=== PATIENT | male | born 1990 ===

== ENCOUNTER 2020-02-27 13:30 | Inpatient (IN) | payer OTHER ==
[~2020-02-27] VITALS: Ht 208.3 cm; Wt 119.9 kg
[2020-02-27 23:15] VITALS: BP 132/78
[2020-02-27] MEDS ORDERED: VALACYCLOVIR 500MG TABLET PO SCH (23:30)
[2020-02-27] MEDS ORDERED: MELATONIN 5 MG TABLET PO PRN (23:30)
[2020-02-28 01:22] VITALS: BP 126/78
[2020-02-28] MEDS ORDERED: BISACODYL 10 MG SUPP PR PRN (01:30)
[2020-02-28] MEDS: CYCLOBENZAPRINE 10 MG TABLET PO PRN ×2 (03:16→16:23)
[2020-02-28] MEDS ORDERED: CYCL-259 PO (05:30)
[2020-02-28] MEDS ORDERED: DOLU50TA PO (05:32)
[2020-02-28] MEDS ORDERED: EMTR1TAB14 PO (05:35)
[2020-02-28] MEDS ORDERED: FOLI-17 PO (05:36)
[2020-02-28] MEDS ORDERED: TAMS-11 PO (05:38)
[2020-02-28] MEDS ORDERED: SULF1TAB24 PO (05:38)
[2020-02-28 07:10] VITALS: BP 120/76
[2020-02-28 07:26] LABS: BASOPHILS % (AUTO) 1 % (0-1); EOSINOPHILS % (AUTO) 2 % (1-7); LYMPHOCYTES % (AUTO) 8 % (22-44); MEAN CORPUSCULAR HEMOGLOBIN 30.9 pg (27.5-34.5); MEAN CORPUSCULAR HGB CONC 33.8 g/dL (33.2-36.2); MEAN PLATELET VOLUME 7.4 fL (7.4-10.4); MONOCYTES % (AUTO) 16 % (2-9); NEUTROPHILS % (AUTO) 74 % (42-75); PLATELET COUNT 333 x10^3/uL (130-400); RED BLOOD COUNT 3.88 x10^6/uL (4.38-5.82); RED CELL DISTRIBUTION WIDTH 14.8 % (9.4-14.8)
[2020-02-28 07:40] LABS: ALANINE AMINOTRANSFERASE 40 U/L (12-78); ALBUMIN 2.4 g/dL (3.4-5.0); ANION GAP 6 mmol/L (5-15); CALCIUM 8.8 mg/dL (8.5-10.1); CHLORIDE 104 mmol/L (98-107)
[2020-02-28 07:42] LABS: ALKALINE PHOSPHATASE 51 U/L (45-117); BILIRUBIN,TOTAL 0.4 mg/dL (0.2-1.0); CREATININE 0.58 mg/dL (0.7-1.3); TOTAL PROTEIN 7.7 g/dL (6.4-8.2)
[2020-02-28 08:01] LABS: MD SCAN
[2020-02-28] MEDS: ACYCLOVIR 1,000 MG in SODIUM CHLORIDE 0.9% 250 ML IV SCH ×3 (08:37→16:23)
[2020-02-28] MEDS: SULFAMETH./TRIMETHOPRIM DS 800MG/160MG TABLET PO SCH ×2 (08:38→20:57)
[2020-02-28] MEDS: MULTIVITAMIN 1 TABLET PO SCH (08:38)
[2020-02-28] MEDS: CYANOCOBALAMIN 1,000 MCG TABLET PO SCH (08:38)
[2020-02-28] MEDS: ACETAMINOPHEN 325 MG TABLET PO PRN ×2 (08:38→20:57)
[2020-02-28] MEDS: FOLIC ACID 1 MG TABLET PO SCH (08:38)
[2020-02-28] MEDS: ENOXAPARIN 40 MG/0.4 ML SQ SCH (08:40)
[2020-02-28] MEDS: EMTRICITABINE/TENOFOV ALAFENAM 200-25 TAB PO SCH (09:00)
[2020-02-28] MEDS: DOLUTEGRAVIR 50MG TAB PO SCH (11:14)
[2020-02-28] MEDS ORDERED: ONDANSETRON 2MG/ML, 2ML IVPush PRN (14:00)
[2020-02-28] MEDS ORDERED: ONDANSETRON ODT 4 MG PO PRN (14:00)
[2020-02-28 16:27] VITALS: BP 127/78
[2020-02-28 20:50] VITALS: BP 153/79
[2020-02-29] MEDS: CYCLOBENZAPRINE 10 MG TABLET PO PRN ×4 (00:28→23:56)
[2020-02-29] MEDS: ACYCLOVIR 1,000 MG in SODIUM CHLORIDE 0.9% 250 ML IV SCH ×3 (00:28→19:46)
[2020-02-29 00:31] VITALS: BP 131/88
[2020-02-29] MEDS: ACETAMINOPHEN 325 MG TABLET PO PRN ×3 (04:17→18:04)
[2020-02-29 08:15] VITALS: BP 131/81
[2020-02-29] MEDS: DOLUTEGRAVIR 50MG TAB PO SCH (09:06)
[2020-02-29] MEDS: EMTRICITABINE/TENOFOV ALAFENAM 200-25 TAB PO SCH (09:07)
[2020-02-29] MEDS: ENOXAPARIN 40 MG/0.4 ML SQ SCH (09:08)
[2020-02-29] MEDS: CYANOCOBALAMIN 1,000 MCG TABLET PO SCH (09:08)
[2020-02-29] MEDS: SULFAMETH./TRIMETHOPRIM DS 800MG/160MG TABLET PO SCH (09:08)
[2020-02-29] MEDS: MULTIVITAMIN 1 TABLET PO SCH (09:09)
[2020-02-29] MEDS: FOLIC ACID 1 MG TABLET PO SCH (09:09)
[2020-02-29 14:00] VITALS: BP 128/76
[2020-02-29 19:47] VITALS: BP 130/84
[2020-03-01] MEDS: ACETAMINOPHEN 325 MG TABLET PO PRN ×3 (02:56→17:20)
[2020-03-01] MEDS: ACYCLOVIR 1,000 MG in SODIUM CHLORIDE 0.9% 250 ML IV SCH ×3 (02:56→19:58)
[2020-03-01 03:08] VITALS: BP 137/80
[2020-03-01 08:30] VITALS: BP 135/85
[2020-03-01] MEDS: DOLUTEGRAVIR 50MG TAB PO SCH (08:32)
[2020-03-01] MEDS: FOLIC ACID 1 MG TABLET PO SCH (08:32)
[2020-03-01] MEDS: EMTRICITABINE/TENOFOV ALAFENAM 200-25 TAB PO SCH (08:32)
[2020-03-01] MEDS: SULFAMETH./TRIMETHOPRIM DS 800MG/160MG TABLET PO SCH (08:33)
[2020-03-01] MEDS: MULTIVITAMIN 1 TABLET PO SCH (08:33)
[2020-03-01] MEDS: CYANOCOBALAMIN 1,000 MCG TABLET PO SCH (08:33)
[2020-03-01] MEDS: ENOXAPARIN 40 MG/0.4 ML SQ SCH (08:33)
[2020-03-01] MEDS: CYCLOBENZAPRINE 10 MG TABLET PO PRN ×2 (09:15→17:19)
[2020-03-01 13:36] VITALS: BP 124/78
[2020-03-01 20:01] VITALS: BP 130/73
[2020-03-02] MEDS: ACETAMINOPHEN 325 MG TABLET PO PRN ×3 (01:40→17:40)
[2020-03-02] MEDS: CYCLOBENZAPRINE 10 MG TABLET PO PRN ×3 (01:40→17:40)
[2020-03-02 01:56] VITALS: BP 135/83
[2020-03-02] MEDS: ACYCLOVIR 1,000 MG in SODIUM CHLORIDE 0.9% 250 ML IV SCH ×3 (03:32→13:08)
[2020-03-02 07:01] VITALS: BP 130/81
[2020-03-02 07:20] LABS: ANION GAP 5 mmol/L (5-15); CALCIUM 8.8 mg/dL (8.5-10.1); CHLORIDE 107 mmol/L (98-107); CREATININE 0.55 mg/dL (0.7-1.3)
[2020-03-02] MEDS: ENOXAPARIN 40 MG/0.4 ML SQ SCH (09:40)
[2020-03-02] MEDS: CYANOCOBALAMIN 1,000 MCG TABLET PO SCH (09:41)
[2020-03-02] MEDS: MULTIVITAMIN 1 TABLET PO SCH (09:41)
[2020-03-02] MEDS: FOLIC ACID 1 MG TABLET PO SCH (09:41)
[2020-03-02] MEDS: SULFAMETH./TRIMETHOPRIM DS 800MG/160MG TABLET PO SCH (09:41)
[2020-03-02] MEDS: DOLUTEGRAVIR 50MG TAB PO SCH (10:38)
[2020-03-02] MEDS: EMTRICITABINE/TENOFOV ALAFENAM 200-25 TAB PO SCH (10:38)
[2020-03-02 13:56] VITALS: BP 138/78
[2020-03-02] MEDS ORDERED: ACYC500V INJ (14:45)
[2020-03-02] MEDS ORDERED: Sulfameth./Trimethoprim Ds PO (14:45)
== END 2020-03-02 18:34 | DRG 97 ==
LOC: 3N 21:43
PROVIDERS: ADMIT Hospitalist; ATTEND Internal Medicine
DX: G37.3 Acute transverse myelitis in demyelinating disease of central nervous system (principal); R53.2 Functional quadriplegia; B20 Human immunodeficiency virus [HIV] disease; E46 Unspecified protein-calorie malnutrition; B01.9 Varicella without complication; G61.81 Chronic inflammatory demyelinating polyneuritis; F32.9 Major depressive disorder, single episode, unspecified; E83.42 Hypomagnesemia; D63.8 Anemia in other chronic diseases classified elsewhere; F17.210 Nicotine dependence, cigarettes, uncomplicated; F41.0 Panic disorder [episodic paroxysmal anxiety]; G57.90 Unspecified mononeuropathy of unspecified lower limb; E87.6 Hypokalemia; B02.9 Zoster without complications; G83.9 Paralytic syndrome, unspecified; Z80.42 Family history of malignant neoplasm of prostate; Z79.899 Other long term (current) drug therapy
CPT/HCPCS: 36415; 80048; 80053; 83735; 85025; G0378; J0133; J1650; J7050